=== PATIENT | male | born 2005 | race Caucasian/White ===

== ENCOUNTER 2025-07-08 19:54 | Emergency (ER) | payer SELFPAY ==
[2025-07-08 20:06] VITALS: BP 171/109
[2025-07-08 20:34] LABS: Hematocrit 48.5 % (39.0-52.0); Hemoglobin 16.8 g/dL (13.0-18.0); Mean Corp Hgb Conc. 34.6 g/dL (33.0-37.0); Mean Corpuscular Volume 85.2 fL (80.0-94.0); Nucleated Red Blood Cells % 0 % (-); Platelet Count 182 10^3/uL (130-400); Red Cell Dist. Width 11.9 % (11.5-14.5)
[2025-07-08 20:43] LABS: ALT (SGPT) 58 U/L (0-50); AST (SGOT) 50 U/L (17-59); Albumin 5.1 g/dl (3.5-5.0); Alkaline Phosphatase 66 U/L (38-126); Blood Urea Nitrogen 17 mg/dl (9-20); Calcium 9.7 mg/dl (8.4-10.2); Carbon Dioxide 29 mmol/L (22-30); Chloride 96 mmol/L (98-107); Glucose 122 mg/dl (70-99); Potassium 4.0 mmol/L (3.5-5.1); Sodium 134 mmol/L (135-145); Total Protein 8.0 g/dl (6.3-8.2); eGFR > 60.00
--- NOTE | 2025-07-08 21:50 | ED.SKININJ ---
HPI-Injury
General
Chief Complaint: Skin Problem
Source: patient
Exam Limitations: none
Time Seen by Provider: 07/08/25 21:42
History of Present Illness-Injury
Initial Injury comments:
19-year-old male presents with 2 days worth of worsening rash to the face the hands and the feet. This was preceded by sore throat and URI-like symptoms. No fevers. He states someone at work had a rash similar to this. He is healthy otherwise.
Does not take any medications. No other complaints at this time
Phy Exam
Physical Exam
Physical Exam:
General: Well-appearing male no acute respiratory distress
HEENT: Normal cephalic atraumatic posterior pharynx patent there are perioral lesions noted that are papular in nature slightly tender
Heart: Regular rate and rhythm
Lungs: Clear no wheeze
Skin: Slightly painful papular rash over the palms of the hands bilaterally the fingers the toes and the perioral region. No underlying fluctuance or induration
Extremities: No cyanosis
Course
Orders/Labs/Results
Orders:
Orders
07/08/25 20:14
CBC/With Diff [Complete Blood Count/With Diff] Urgent
CMP [Comprehensive Metabolic Panel] Urgent
Abnormal Lab Results
07/08/25
20:14
Absolute Neuts (auto) 7.2 H 10^3/uL
(1.4-6.5)
Absolute Monos (auto) 1.1 H 10^3/uL
(0.1-0.6)
Lymphocytes % 15.4 L %
(20.5-51.1)
Monocytes % 11.3 H %
(1.7-9.3)
Sodium 134 L mmol/L
(135-145)
Chloride 96 L mmol/L
(98-107)
Glucose 122 H mg/dl
(70-99)
ALT 58 H U/L
(0-50)
Albumin 5.1 H g/dl
(3.5-5.0)
07/08/25 20:14
07/08/25 20:14
Vital Signs
Initial and Last Documented VS:
Initial Vital Signs
Temp Pulse Resp BP Pulse Ox
98.4 F 117 15 171/109 99
07/08/25 20:06 07/08/25 20:06 07/08/25 20:06 07/08/25 20:06 07/08/25 20:06
Last Documented Vital Signs
Temp Pulse Resp BP Pulse Ox
98.4 F 117 15 171/109 99
07/08/25 20:06 07/08/25 20:06 07/08/25 20:06 07/08/25 20:06 07/08/25 20:06
MDM/Problems Addressed
Differential Diagnosis Includes:
Patient with rash most consistent with coxsackievirus or hljy-sszo-mwi-mouth disease. No concern for meningitis. He is nontoxic otherwise. There is no secondary bacterial infection. Recommended supportive care no indication for intervention
otherwise. Stable for discharge
*Pulse Oximetry
SaO2: 99
Oxygen Mode of Delivery: Room air
Patient hypoxic: no
*Critical Care Note
Total Time (30-74mins, 75-104mins- exclusive of procedures): Not Applicable
ED Attending Note
-
Portions of this chart may have been created with voice recognition software.� Occasional wrong word or��sound alike� substitutions may have occurred due to the inherent limitations of voice recognition software.
Discharge Plan
Departure
Patient Disposition: Home (Routine Discharge)
Date of Disposition: 07/08/25
Time of Disposition: 21:52
Patient with high blood pressure during this ER visit?: No
Discharge Problem:
Hand, foot and mouth disease
Instructions: Hand, foot, and mouth disease and herpangina
Activity Restrictions/Additional Instructions:
You may use ibuprofen Tylenol or Benadryl for your symptoms. You can also consider using hydrocortisone cream on the hands and feet. Return if worse otherwise follow-up with your doctor
Interventions
Interventions:
*Risk Screen - Suicide Last Done: 07/08/25 20:06
*General Assessment Last Done: 07/08/25 20:06
*Neglect/Abuse Screening Last Done: 07/08/25 20:06
*ED- Fall Risk Assessment Last Done: 07/08/25 20:06
*ED COVID-19 Vaccine History Last Done: 07/08/25 20:06
*ED Influenza Vaccine History Last Done: 07/08/25 20:06
Discharge Date and Time
Print Language: [id number]
== END 2025-07-08 22:10 | disposition home or self-care (01) ==
LOC: EMR 19:54
PROVIDERS: EMERGENCY PHYSICIAN Emergency Medicine
DX: B08.4 Enteroviral vesicular stomatitis with exanthem (principal)
CPT/HCPCS: 99283; 80053; 85025